=== PATIENT | male | born 1985 | race Two or more races ===

== ENCOUNTER 2024-05-09 09:05 | Emergency (ER) | payer OTHER ==
[~2024-05-09] VITALS: Ht 175.3 cm; Wt 99.8 kg
[2024-05-09] MEDS ORDERED: DEXAMETHASONE SODIUM PHOSPHATE 4 MG/ML VIAL IM STA (09:50)
== END 2024-05-09 10:33 | disposition home or self-care (01) ==
LOC: ER 09:06
DX: S49.81XA Other specified injuries of right shoulder and upper arm, initial encounter (principal); Y93.89 Activity, other specified; Y92.89 Other specified places as the place of occurrence of the external cause; W19.XXXA Unspecified fall, initial encounter; Z88.6 Allergy status to analgesic agent; Z91.013 Allergy to seafood

== ENCOUNTER 2025-01-19 09:23 | Emergency (ER) | payer OTHER ==
[~2025-01-19] VITALS: Ht 175.3 cm; Wt 102.5 kg
[2025-01-19] MEDS ORDERED: ORPHENADRINE CITRATE 30 MG/ML AMPUL IM ONE (10:30)
[2025-01-19] MEDS ORDERED: NORFLEX100MG PO (11:17)
== END 2025-01-19 11:24 | disposition home or self-care (01) ==
LOC: ER 09:23
DX: M25.512 Pain in left shoulder (principal); Z91.013 Allergy to seafood; Z88.6 Allergy status to analgesic agent; F17.210 Nicotine dependence, cigarettes, uncomplicated